=== PATIENT | female | born 1990 | race Native Hawaiian/Other Pacific Islander ===

== ENCOUNTER 2018-12-28 11:57 | Inpatient (IN) | payer OTHER ==
[~2018-12-28] VITALS: Ht 170.2 cm; Wt 125.1 kg
[2018-12-28] VITALS (19 sets, daily range): BP systolic 123–163; BP diastolic 67–91
[2018-12-28] MEDS ORDERED: PRENTAB9 PO (12:38)
[2018-12-28 14:26] LABS: ALT/SGPT 21 U/L (12-78); BILIRUBIN,TOTAL 0.2 MG/DL (0.2-1.0); CREATININE FOR GFR 0.69 MG/DL (0.55-1.30); GLOMERULAR FILTRATION RATE > 60.0 (>60); LDH LACTATE DEHYDROGENASE 198 U/L (84-246); URIC ACID 4.7 MG/DL (2.6-6.0)
[2018-12-28 14:57] LABS: HEMATOCRIT 35.2 % (36.0-47.0); HEMOGLOBIN 11.6 g/dl (12.0-15.5); MEAN CORPUSCULAR HEMOGLOBIN 27.8 pg (27.0-33.0); MEAN CORPUSCULAR VOLUME 84.4 fl (80.0-96.0); PLATELET COUNT, AUTOMATED 243 10^3/uL (150-450); RED BLOOD COUNT 4.17 10^6/uL (4.00-5.40); WHITE BLOOD COUNT 10.6 10^3/uL (4.0-10.0)
[2018-12-28] MEDS ORDERED: LACTATED RINGER'S 1000 ML IV STA (15:16)
[2018-12-28] MEDS ORDERED: BICITRA 30ML SOLN UDC PO ONE (15:30)
[2018-12-28] MEDS ORDERED: ceFAZolin SOD 1 GM in D5W MINI-BAG PLUS 50 ML IV ONE (15:30)
--- NOTE | 2018-12-28 15:33 | HPEPDOC ---
Obstetrical History & Physical General Date of Admission Dec 28, 2018 at 15:07 History of Present Illness 28 yo at 37+6 weeks gestation by 13+0 week US on 07Jul2018 presented to L&D as a workup for pre eclampsia. She was noted to have elevated blood pressure last week and also today that was persistent. She feels well though and is asymptomatic of headaches, RUQ pain, visual changes, or SOB. She also denies any pelvic pain, contractions, leakage of fluid, or bleeding. Chief Complaint: Pre-eclamsia Information Provided By: Patient Age: 28 : 3 Term: 0 Pre-term: 2 Abortions: 0 Livin Care Care: Good Care Dating Final EDC: Jan 12, 2019 Final EDC for Daily Update: Jan 12, 2019 Final EDC by: 1st trimester (US) (13+0 week US on 07Jul2018 set ENRIQUE of [id number]) Antepartum Course Diagnos(e)s Obesity ---> BMI 43, normal glucose screening History of 24 week C/S for labor and breech presentation. Also 36 week . Was on 17-OHP throughout Past Medical History Past Obstetrical History : Past Obstetrical History: Multigravida (C/S at 24 weeks in 2013 for labor and breech presentation. 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 Past Medical History Medical History Obesity Surgical History: section Family History Significant Family History: No pertinent family hx Family History Non contributory Social History Marital Status: Single Psychosocial History: No pertinent psych hx * Smoker: non-smoker Alcohol: Denies Drugs: denies Imunizations Tdap status: current Influenza Status: current Allergies Coded Allergies: No Known Allergies (Unverified , 12/28/18) Medications Scheduled No.137/Iron/Folic Acd ( Vitamin Tablet) 1 Each Tablet, 1 TAB PO DAILY Physical Examination Physical Examination GENERAL: Alert and oriented times three. ABDOMEN: Gravid uterus, no fundal tenderness FETUS: Is vertex (VTX) by sterile vaginal examination (SVE) EXTREMITIES: +1 pitting edema in lower extremities Vital Signs/I&O Vital Signs Date Time Temp Pulse Resp B/P (MAP) Pulse Ox O2 Delivery O2 Flow Rate FiO2 12/28/18 13:19 73 129/67 (87) 12/28/18 12:22 98.3 18 Laboratory Data 24H LABS Laboratory Tests 2 12/28/18 13:48: Nucleated Red Blood Cells % (auto) 0.0, Urine Random Creatinine 48.0, Urine Random Total Protein 23.0H, Glomerular Filtration Rate > 60.0, Creatinine 0.69, Aspartate Amino Transf (AST/SGOT) 20, Alanine Aminotransferase (ALT/SGPT) 21, Lactate Dehydrogenase 198, Total Bilirubin 0.2, Uric Acid 4.7 12/28/18 15:13: Serology Scanned Report Hepatitis B Testing CBC/BMP Laboratory Tests 12/28/18 13:48 Red Blood Count 4.17, Mean Corpuscular Volume 84.4, Mean Corpuscular Hemoglobin 27.8, Mean Corpuscular Hemoglobin Concent 33.0, Red Cell Distribution Width 13.3, Aspartate Amino Transf (AST/SGOT) 20, Alanine Aminotransferase (ALT/SGPT) 21, Lactate Dehydrogenase 198, Total Bilirubin 0.2, Uric Acid 4.7 Urine Culture: No Growth Pertinent Laboratoy Data Blood Type: A+ RBC Antibody Screen: Negative HIV: Negative Hepatitis B: Negative Hepatitis C: Unknown Rapid Plasma Reagin: Nonreactive Rubella: Immune Varicella: Nonreactive Chlamydia/Gonorrhea: Negative Group B Streptococcus: Negative Quad Screen Test: Unknown Cystic Fibrosis: Unknown Glucose Tolerance Test: 96 Anatomy Ultrasound Placenta Location: Anterior Normal Anatomy: Yes Placenta Previa: No Vaginal Examination Dilation: None Effacement: 50% Station: -3 Cervical Consistency: Firm Cervical Position: Posterior Presentation: Cephalic presentation Position: Vertex (occiput) (cervical exam by Dr. Corrales) Assessment Heart Rate (FHR): 140 Variability: Moderate Accelerations: Positive Decelerations: None Tocometer Contractions: No Assessment/Plan Assessment 28 yo at 37+6 weeks presented with elevated blood pressures have has ruled in for pre eclampsia. Plan Admit. Apply IV fluids. Patient meets criteria for Pre E with elevated BPs and pr:cr of 0.47. Delivery is indicated. She has had one prior c section, with a single layer closure of her lower uterine segment based on her op report. In addition, her cervix is closed/thick/high. I discussed RLTCS vs IOL and TOLAC. TOLAC would likely be a long process and I wouldn't be able to give her anything for cervical ripening. Ms. Bowden understands this and desires to proceed with RLTCS, which is what I recommended. She has been NPO since 0800 this AM. Ancef and azithromycin for infection prophylaxis. OR and anesthesia notified. All patient questions answered. DO GAVIN Mabry CHRISTOPHER J. DO Dec 28, 2018 15:33
[2018-12-28] MEDS ORDERED: AZITHROMYCIN INJ 500 MG, VIAL MATE ADAPTER 1 EACH in D5W 250 ML IV ONE (16:00)
[2018-12-28] MEDS ORDERED: MORPHINE PRES-FREE INJ 10 MG/10 ML VIAL (J2274) As Ordered ONE (19:05)
[2018-12-28 19:52] LABS: APPEARANCE, URINE HAZY (CLEAR); BACTERIA, URINE AUTO NEGATIVE (NEGATIVE); BILIRUBIN, URINE AUTO NEGATIVE (NEGATIVE); BLOOD, URINE BLOOD NEGATIVE (NEGATIVE); COLOR, URINE YELLOW (YELLOW); GLUCOSE, URINE (UA) AUTO NEGATIVE (NEGATIVE); KETONE, URINE AUTO NEGATIVE (NEGATIVE); LEUKOCYTE ESTERASE, URINE AUTO NEGATIVE (NEGATIVE); NITRITE, URINE AUTO NEGATIVE (NEGATIVE); PROTEIN, URINE AUTO NEGATIVE (NEGATIVE); RBC, URINE AUTO 0 /HPF (0-3); SPECIFIC GRAVITY URINE AUTO 1.008 (1.002-1.035); SQUAMOUS EPITHELIAL CELL UR AU 9 /HPF (0-6); UROBILINOGEN, URINE AUTO 0.2 mg/dL (0.0-2.0); WBC, URINE AUTO 1 /HPF (0-3)
[2018-12-28] MEDS ORDERED: dexameTHASONE 4 MG/ML 1ML VIAL (J1100) As Ordered ONE (19:57)
[2018-12-28] MEDS ORDERED: ONDANSETRON 4MG/2ML VIAL (J2405) As Ordered ONE ×2 (19:58→21:49)
[2018-12-28] MEDS ORDERED: OXYTOCIN INJ 10 UNITS/ML VIAL (J2590) As Ordered ONE (19:58)
[2018-12-28] MEDS ORDERED: KETOROLAC 60 MG/2 ML VIAL (J1885) As Ordered ONE (20:11)
[2018-12-28] MEDS ORDERED: fentaNYL 100 MCG/2 ML INJECTION (J3010) As Ordered ONE (20:18)
[2018-12-28] MEDS: LR 1,000 ML IV SCH (20:50)
[2018-12-28] MEDS ORDERED: PERCOCET 5MG/325MG TAB PO PRN ×3 (21:00→21:30)
[2018-12-28] MEDS ORDERED: RHOGAM 300 MCG (1500 IU) INJ (J2790) IM SCH (21:00)
[2018-12-28] MEDS ORDERED: DOCUSATE SODIUM 100 MG CAP PO PRN (21:00)
[2018-12-28] MEDS ORDERED: PROMETHAZINE 25 MG TAB PO PRN (21:00)
[2018-12-28] MEDS ORDERED: MEASLES,MUMPS,RUBELLA VACCINE INJ (MMR-II) (90707) SC SCH (21:00)
[2018-12-28] MEDS ORDERED: LR 1,000 ML IV SCH (21:30)
[2018-12-28] MEDS ORDERED: METOCLOPRAMIDE INJ 10MG/2ML VIAL (J2765) IV PRN (21:30)
[2018-12-28] MEDS ORDERED: ONDANSETRON 4MG/2ML VIAL (J2405) IV PRN (21:30)
[2018-12-28] MEDS ORDERED: MEPERIDINE INJ 25 MG/ML VIAL (J2175) IV PRN (21:30)
[2018-12-28] MEDS ORDERED: fentaNYL 100 MCG/2 ML INJECTION (J3010) IV PRN (21:30)
[2018-12-29] VITALS (7 sets, daily range): BP systolic 130–136; BP diastolic 59–80
[2018-12-29] MEDS: KETOROLAC 30 MG/ML VIAL (J1885) IV SCH ×3 (02:38→15:28)
[2018-12-29] MEDS: LR 1,000 ML IV SCH (04:50)
[2018-12-29 06:49] LABS: HEMOGLOBIN 10.6 g/dl (12.0-15.5); MEAN CORPUSCULAR HEMOGLOBIN 27.5 pg (27.0-33.0); MEAN CORPUSCULAR HGB CONC 33.1 g/dl (32.0-36.5); MEAN CORPUSCULAR VOLUME 82.9 fl (80.0-96.0); PLATELET COUNT, AUTOMATED 247 10^3/uL (150-450); RED BLOOD COUNT 3.86 10^6/uL (4.00-5.40); WHITE BLOOD COUNT 17.5 10^3/uL (4.0-10.0)
--- NOTE | 2018-12-29 07:18 | IPNPDOC ---
Progress Note Date of Service: Dec 29, 2018 Progress Note Ms. Bowden is a 28 yo G3 now P3 who is POD#1 s/p an uncomplicated RLTCS last night for pre eclampsia in the setting of a history of a prior c section and no desire for TOLAC. She is recovering on the grijalva. Ms. Bowden reports feeling well this morning. She had vomiting last night after delivery after eating a very large meal immediately post op. THis has since resolved after receiving nausea medication. She has not yet been ambulatory as her legs are still numb. Salazar catheter is still in place. She denies any pain this AM, fevers/chills, SOB, chest pain. Vitals - VSS, afebrile, normotensive, non tachycardic General - AAOX3, sitting up in bed , NAD Abdomen - Fundus firm at U-2. No fundal tenderness. Bandage in place over incision and c/d/i. Extremities - No edema UO - adequate, but borderline low Labs: Post op CBC stable this AM Ms. Bowden is doing well and is making an appropriate post op / rec overy. Will need to encourage ambulation when able. Continue IV fluids until fully PO tolerant. Continue IS use. SCDs to remain in place until patient fully ambulatory. Monitor BPs closely today. Continue routine post op care. All patient questions answered. Ac Alonso, DO VS, I&O, 24H, Willy Vital Signs/I&O Vital Signs Date Time Temp Pulse Resp B/P (MAP) Pulse Ox O2 Delivery O2 Flow Rate FiO2 12/29/18 05:45 98.3 69 17 133/71 (91) 12/29/18 00:10 96 I&O- Last 24 Hours up to 6 AM 12/29/18 06:00 Intake Total 2030 ml Output Total 1075 ml Balance 955 ml Laboratory Data 24H LABS Laboratory Tests 2 12/28/18 13:45: Urine Appearance HAZY, Urine Color YELLOW, Urine pH 8.0, Urine Specific Bicknell 1.008, Urine Protein NEGATIVE, Urine Glucose (UA) NEGATIVE, Urine Ketones NEGATIVE, Urine Urobilinogen 0.2, Urine Bilirubin NEGATIVE, Urine Leukocyte Esterase NEGATIVE, Urine Blood NEGATIVE, Urine Nitrite NEGATIVE, Urine WBC (Auto) 1, Urine RBC (Auto) 0, Urine Hyaline Casts (Auto) 0, Urine Bacteria (Auto) NEGATIVE, Urine Squamous Epithelial Cells 9, Urine Sperm (Auto) 12/28/18 13:48: Nucleated Red Blood Cells % (auto) 0.0, Urine Random Creatinine 48.0, Urine Random Total Protein 23.0H, Glomerular Filtration Rate > 60.0, Creatinine 0.69, Aspartate Amino Transf (AST/SGOT) 20, Alanine Aminotransferase (ALT/SGPT) 21, Lactate Dehydrogenase 198, Total Bilirubin 0.2, Uric Acid 4.7 12/28/18 15:13: Serology Scanned Report Hepatitis B Testing 12/29/18 06:37: Nucleated Red Blood Cells % (auto) 0.0 CBC/BMP Laboratory Tests 12/28/18 13:48 Red Blood Count 4.17, Mean Corpuscular Volume 84.4, Mean Corpuscular Hemoglobin 27.8, Mean Corpuscular Hemoglobin Concent 33.0, Red Cell Distribution Width 13.3, Aspartate Amino Transf (AST/SGOT) 20, Alanine Aminotransferase (ALT/SGPT) 21, Lactate Dehydrogenase 198, Total Bilirubin 0.2, Uric Acid 4.7 12/29/18 06:37 Red Blood Count 3.86 L, Mean Corpuscular Volume 82.9, Mean Corpuscular Hemoglobin 27.5, Mean Corpuscular Hemoglobin Concent 33.1, Red Cell Distribution Width 13.4 AC ALONOS DO Dec 29, 2018 07:18
--- NOTE | 2018-12-29 07:47 | RO ---
DATE OF PROCEDURE: 12/28/2018 PREOPERATIVE DIAGNOSIS: Preeclampsia with history of section and no desire for trial of labor after (TOLAC). POSTOPERATIVE DIAGNOSIS: Preeclampsia with history of section and no desire for trial of labor after (TOLAC). PROCEDURE: Repeat low transverse section. SURGEON: Alberto Gutierrez DO QUARTZ ORIENTATOR: Sparkle Corrales MD ANESTHESIA: Spinal. FLUIDS: 1200 mL of Lactated Ringer's, 500 mL of pit mixed in Lactated Ringer's. URINE OUTPUT: 100 mL. ESTIMATED BLOOD LOSS: 500 mL. COMPLICATIONS: None. ANTIBIOTICS: 3 grams of Ancef and 500 mg of azithromycin OPERATIVE FINDINGS: Viable male infant found and delivered in cephalic presentation, triple nuchal cord noted with delivery and reduced manually on the field. scores 7 and 8 and weight was 3170 grams or 7 pounds. DETAILED PROCEDURE DESCRIPTION: The risks, benefits, indications and alternatives of the procedure were reviewed with the patient and informed consent was obtained. The patient was taken to the operating room where spinal anesthesia was obtained without difficulty. She was then prepped and draped in the usual sterile fashion in dorsal supine position with a leftward tilt. A surgical time out was then performed and the patient's identity and planned procedure were verified with the operative team. A Pfannenstiel skin incision was then made with a scalpel and carried through to the underlying layer of fascia using the Bovie electrocautery. The fascia was incised in the midline and the incision was extended laterally with Huggins scissors. The superior aspect of the fascial incision was then grasped with Juli clamps, elevated and the underlying rectus muscles were dissected off with Huggins scissors. Attention was then turned to the inferior aspect of this incision, which in a similar fashion was grasped, tented up with Juli clamps and the rectus muscles were dissected off with Huggins scissors. The rectus muscles were then at the midline. The peritoneum was identified and entered digitally. The peritoneal incision was then extended horizontally and superiorly with good visualization of the bladder. A Mobius self containing retractor was then inserted into the abdomen. The vesicouterine peritoneum was then identified and entered sharply with a scalpel. This incision was then extended laterally and the bladder flap was created digitally. Next, the lower uterine segment was incised in a transverse fashion with a scalpel. The uterine incision was then extended manually. The amniotic sac was artificially ruptured, productive of clear fluid. The was found to be in cephalic presentation. The infant's head was then delivered atraumatically through the hysterotomy followed easily by the remainder of the body. There was a triple nuchal cord noted with delivery that was delivered through and then reduced manually. The infant's nose and mouth were then suctioned with a bulb syringe and the cord was doubly clamped and cut. The infant was then handed off to the awaiting pediatricians. The placenta was then removed manually. The uterus was then exteriorized and cleared of all clots and debris. The uterine incision was then repaired with #0 Monocryl suture in a running locked fashion. A second layer of #0 Monocryl was then used to imbricate the hysterotomy in a vertical fashion. The posterior cul-de-sac was then irrigated. Inspection of the hysterotomy revealed excellent hemostasis. The uterus was then returned to the abdomen and the hysterotomy was again inspected and found to be hemostatic along the entire length. The pericolic gutters were then irrigated and cleared of all clots and debris. The Mobius self containing retractor was then removed from the abdomen. The peritoneum was then reapproximated using #3-0 Vicryl suture in a running fashion. There was oozing, bleeding along the rectus muscle surface, which was controlled with Bovie electrocautery. Jamia was then applied to the rectus muscle surface. The fascia was then closed with #0 Vicryl suture in a running fashion. The subcutaneous fat was close with #3-0 Vicryl suture in a running fashion. The skin was closed with #4-0 Monocryl suture in a subcuticular fashion. The incision was then dressed with Steri-Strips and a pressure dressing was applied. At the completion of the case a bimanual exam was performed which revealed good uterine tone and minimal vaginal bleeding. The patient tolerated the procedure well. Sponge, lap, instrument and needle counts were correct times three. The patient was taken to the recovery room in stable condition. NATANAEL
[2018-12-29] MEDS: PRENATAL VITAMINS CHEWABLE TABLET PO SCH (08:25)
[2018-12-29] MEDS: IBUPROFEN 800 MG TAB PO SCH (21:45)
[2018-12-30 02:00] VITALS: BP 133/76
[2018-12-30 06:00] VITALS: BP 139/74
[2018-12-30] MEDS: IBUPROFEN 800 MG TAB PO SCH ×3 (06:02→22:24)
[2018-12-30] MEDS: PRENATAL VITAMINS CHEWABLE TABLET PO SCH (08:39)
--- NOTE | 2018-12-30 09:20 | IPNPDOC ---
Text Note Date of Service The patient was seen on 12/30/18. NOTE POD 2 Jewell is a 28yo G3 now P3 who is POD#2 doing well s/p an uncomplicated RLTCS on 12/[address] Gutierrez for pre-eclampsia in the setting of a history of a prior c- section and no desire for TOLAC. She has been ambulating without lightheadedness/dizziness. Voiding spotaneously without problem. Tolerating regular diet. Lochia is minimal. Pain well controlled with medications. Formula feeding. Has not yet showered. Bandage still on. She denies any pain this AM, fevers/chills, SOB, chest pain. Vitals - VSS, afebrile, normotensive, non tachycardic General - AAOX3, sitting up in comfortably, NAD Abdomen - Fundus firm at U-2. Appropriately tender to palpation without rebound/guarding. Bandage removed, pfannensteil incision is clean/dry/intact with steri strips overlying and no erythema/drainage/induration Extremities - 1+ pedal edema bilaterally Labs: pre-op H/H: 11.6/35.2 post-op H/H: 10.6/32 Assessment: Jewell is a 28yo G3 now P3 who is POD#2 doing well s/p an uncomplicated RLTCS on 12/[address] Gutierrez for pre-eclampsia in the setting of a history of a prior and no desire for TOLAC. Vitals wnl, exam benign. Hemodynamically stable, no e/o infection. Plan: -Routine post-/post-op pain -Likely discharge home tomorrow -Regular diet -Encourage ambulation and use of IS -Ok to shower today, pat incision dry after -Percocet and motrin prn pain Dr. Sparkle Corrales MD VS,Willy, I+O VSWilly, I+O Vital Signs Date Time Temp Pulse Resp B/P (MAP) Pulse Ox O2 Delivery O2 Flow Rate FiO2 12/30/18 06:00 98.6 72 17 139/74 (95) 12/29/18 17:42 98 I&O- Last 24 Hours up to 6 AM 12/30/18 06:00 Intake Total 1140 ml Output Total 1500 ml Balance -360 ml Sparkle Corrales MD Dec 30, 2018 09:20
[2018-12-30 09:58] VITALS: BP 132/73
[2018-12-30 14:00] VITALS: BP 128/58
[2018-12-30 17:51] VITALS: BP 145/73
[2018-12-31 06:00] VITALS: BP 141/75
[2018-12-31] MEDS ORDERED: IBUP80TA PO (06:59)
[2018-12-31] MEDS ORDERED: OXYC1TAB23 PO ×2 (07:22→19:45)
[2018-12-31] MEDS: IBUPROFEN 800 MG TAB PO SCH (07:28)
[2018-12-31] MEDS: PRENATAL VITAMINS CHEWABLE TABLET PO SCH (10:46)
--- NOTE | 2018-12-31 11:56 | DSES ---
DATE OF ADMISSION: 12/28/2018 DATE OF DISCHARGE: 12/31/2018 28-year-old, (G) 3, para (P) 2 female at 37-6/7 weeks gestation presented with persistently elevated blood pressures on repeat readings. She had a workup which was consistent with preeclampsia. Patient has history of one prior section. Due to the fact that her cervix was unfavorable, and in light of diagnosis of preeclampsia, the decision was made to proceed with repeat section. HOSPITAL COURSE: 12/28/2018, patient underwent repeat low transverse section for a 7 pound 0 ounce male . The procedure was without complication. There was noted to be nuchal cord times three at the time of surgery. Patient's postoperative course was unremarkable. She had adequate return of bladder and bowel function. She did not require further blood pressure medications in the postoperative period. Her postoperative hemoglobin was 10.6 g/dL. She was deemed stable for discharge on postoperative date #3. ADMISSION DIAGNOSES: 37-6/7 weeks gestation. Prior section. Preeclampsia. DISCHARGE DIAGNOSIS: Delivered. PROCEDURE: Repeat low transverse section. DISPOSITION: Patient will followup with Peggy Armstrong ORNAMENTAL METALWORK DESIGNER in 2 weeks. Instructions reviewed. edited: 01/01/2019 0712 tkf MTDD
== END 2018-12-31 14:05 | disposition home or self-care (01) | DRG 773 ==
LOC: M LDO 11:57 → M LDI 15:07 → M LDPACU 19:31 → M OBS 22:32
PROVIDERS: ADMIT Obstetrics & Gynecology; ATTEND Obstetrics & Gynecology
PROC: 10D00Z1 Extraction of Products of Conception, Low, Open Approach (ICD-10-PCS; principal; 2018-12-28 16:47)
DX: O14.94 Unspecified pre-eclampsia, complicating childbirth (principal); Z3A.37 37 weeks gestation of pregnancy; O34.211 Maternal care for low transverse scar from previous cesarean delivery; O99.214 Obesity complicating childbirth; E66.9 Obesity, unspecified; O69.81X0 Labor and delivery complicated by cord around neck, without compression, not applicable or unspecified; Z37.0 Single live birth

== ENCOUNTER 2019-05-11 19:43 | Emergency (ER) | payer OTHER ==
[~2019-05-11 19:43] MED LIST: IBUP80TA PO; OXYC1TAB23 PO; PRENTAB9 PO
[2019-05-11] MEDS ORDERED: FLEET ENEMA PR STA (21:38)
[2019-05-11] MEDS ORDERED: MAGNESIUM CITRATE 300 ML BTL PO ONE (21:45)
[2019-05-11] MEDS ORDERED: DOCUSATE SODIUM 100 MG CAP PO ONE (21:45)
[2019-05-11] MEDS ORDERED: COLA100C5 PO (22:54)
[2019-05-11] MEDS ORDERED: MACR100C43 PO (22:54)
[2019-05-11] MEDS ORDERED: NITROFURANTOIN (MACROBID) 100 MG CAP PO ONE (23:00)
[2019-05-11 23:03] VITALS: BP 131/75
--- NOTE | 2019-05-12 08:38 | REP ---
Abdominal series: Three views. Tree: No bowel movement times 2 days. Abdomen pain. Findings: Upright chest radiograph is normal. There is no evidence of infiltrate or free subdiaphragmatic air. Heart is not enlarged. Supine and erect views of the abdomen demonstrate a normal bowel gas pattern. There are a few small air fluid levels in the ascending and transverse segments of the colon. Mild formed stool is seen in the rectum. No colonic distension. Lank stripes are intact. Psoas margins are symmetric. No mass organomegaly. Impression: Unremarkable abdominal series. Electronically Signed by Hesham Coyne MD 05/12/2019 08:30 A
== END 2019-05-11 23:04 | disposition home or self-care (01) ==
LOC: M ED 19:43
DX: N30.00 Acute cystitis without hematuria (principal); R19.4 Change in bowel habit

== ENCOUNTER 2019-06-28 11:36 | Day surgery (SDC) | payer OTHER ==
[~2019-06-28] VITALS: Ht 170.2 cm; Wt 102.9 kg
[~2019-06-28 11:36] MED LIST changes: +COLA100C5 PO; +LR 1,000 ML IV ONE; +MACR100C43 PO
[2019-06-28 11:59] LABS: HEMOGLOBIN 14.1 g/dl (12.0-15.5); MEAN CORPUSCULAR HEMOGLOBIN 26.6 pg (27.0-33.0); PLATELET COUNT, AUTOMATED 298 10^3/uL (150-450); WHITE BLOOD COUNT 5.4 10^3/uL (4.0-10.0)
[2019-06-28] MEDS ORDERED: ROCURONIUM BROMIDE 50 MG/5 ML VIAL As Ordered ONE ×2 (12:23→13:51)
[2019-06-28] MEDS ORDERED: propofoL 200 MG/20 ML VIAL As Ordered ONE (12:23)
[2019-06-28] MEDS ORDERED: dexameTHASONE 4 MG/ML 1ML VIAL (J1100) As Ordered ONE (12:23)
[2019-06-28] MEDS ORDERED: ONDANSETRON 4MG/2ML VIAL (J2405) As Ordered ONE ×2 (12:23→15:01)
[2019-06-28] MEDS ORDERED: LIDOCAINE 2% INJ 100 MG/5 ML SDV (FOR ANES.) As Ordered ONE (12:23)
[2019-06-28] MEDS ORDERED: fentaNYL 100 MCG/2 ML INJECTION (J3010) As Ordered ONE ×2 (12:24→13:52)
[2019-06-28] MEDS ORDERED: MIDAZOLAM INJ 2 MG/2 ML VIAL (J2250) As Ordered ONE (12:24)
[2019-06-28 12:33] LABS: HCG, SERUM QUALITATIVE NEGATIVE (NEGATIVE)
[2019-06-28] MEDS ORDERED: KETOROLAC 60 MG/2 ML VIAL (J1885) As Ordered ONE (13:52)
[2019-06-28] MEDS ORDERED: ACETAMINOPHEN 1000MG 100ML IV BTL (OFIRMEV) (J0131 PER 10MG) As Ordered ONE (13:52)
[2019-06-28] MEDS ORDERED: SUGAMMADEX SODIUM 500 MG/5 ML VIAL (BRIDION) As Ordered ONE (13:52)
[2019-06-28] MEDS ORDERED: BUPIVACAINE/EPIN 0.25% 30 ML VIAL As Ordered ONE (14:05)
[2019-06-28] MEDS ORDERED: METOCLOPRAMIDE INJ 10MG/2ML VIAL (J2765) As Ordered ONE (15:01)
[2019-06-28] MEDS ORDERED: LR 1,000 ML IV SCH ×2 (15:15)
[2019-06-28] MEDS ORDERED: ONDANSETRON 4MG/2ML VIAL (J2405) IV PRN (15:15)
[2019-06-28] MEDS ORDERED: PERCOCET 5MG/325MG TAB PO PRN (15:15)
[2019-06-28] MEDS ORDERED: fentaNYL 100 MCG/2 ML INJECTION (J3010) IV PRN (15:15)
[2019-06-28] MEDS ORDERED: METOCLOPRAMIDE INJ 10MG/2ML VIAL (J2765) IV PRN (15:15)
[2019-06-28] MEDS: HYDROMORPHONE HCL 0.5 MG/ 0.5 ML SYRINGE (J1170 PER 1) IV PRN ×2 (15:37→15:45)
--- NOTE | 2019-06-28 15:40 | POST-OPPD ---
Postoperative Procedure Note PREOPERATIVE DIAGNOSIS: Right adnexal cyst POSTOPERATIVE DIAGNOSIS: Right paratubal cyst FINDINGS: Right paratubal cyst. uterus with anterior adhesions to bladder. PROCEDURE: Right paratubal cystectomy SURGEON: Karol Nickerson DO STEEL ANALYST: Deepak Danielle DO ANESTHESIA: General SPECIMENS: Right para tubal cyst ESTIMATED BLOOD LOSS: < 5cc REPLACED: 1700cc LR DRAINS: 400cc urine COMPLICATIONS: none POSTOPERATIVE CONDITION: stable Detail Procedure note: Indication: Patient is a 29 yo with right adnexal cyst causing discomfort desiring surgical intervention. Patient history significant for delivery x 2 and obesity. Findings: Anterior uterus with adhesions to bladder. Normal appearing bilateral ovaries and left fallopian tubes. Right fallopian tube with large (~5-6cm) para tubal cyst under the mesosalpingx starting from mid ithmus portion of tube extending to the fimbriea. Normal appearing bowel and liver edge. Description of procedure: The risks, benefits, indications and alternatives of the procedure were reviewed with the patient and informed writen consent was obtained. The patient was taken to the operating room with IV running. She was placed under general anesthesia with endotracheal tube. Arms tucked. Patient placed in lithotomy. The abdomen, vagina and perineum were prepped and draped in the usual sterile fashion. Salazar inserted. Sponge stick placed vaginally for uterine manipulation. Small incision made in umbilicus. Veres needle introduced. Saline drop test confirmed intraabdominal placement. Abdomen insufflated with CO2. Five mm trocar introduced under direct visualization. Surveys reviews no bowel injury or bleeding. Two 5mm ports placed left lower abdomen with direct visualization. Findings as above. Harmonic scalpel used to dissect cyst off the right mesosalpingx. Laparoscopic needle used to drain cyst of clear fluid. Cyst removed through trocar port. Surgical area inspected for hemostasis. Right fallopian tube and ovary were not disrupted with surgery. Abdomen desuflated. Camera and instruments removed from abdomen. Incision sites closed with 4-O monocryl and dermabond. Salazar and sponge stick removed from the vagina. Count correct x 2. Patient was taken out of OR in stable condition KAROL NICKERSON DO Jun 28, 2019 15:40
[2019-06-28] MEDS ORDERED: PERCOCET 5MG/325MG TAB As Ordered ONE (16:37)
[2019-06-28 19:10] VITALS: BP 132/83
== END 2019-06-28 19:45 | disposition home or self-care (01) ==
LOC: M SDC 11:36
PROVIDERS: ATTEND Obstetrics & Gynecology
DX: N83.291 Other ovarian cyst, right side (principal); K59.00 Constipation, unspecified; E66.9 Obesity, unspecified
CPT/HCPCS: 36415; 58662; 84703; 85027; 86850; 86900; 86901; 88305; J0131; J1100; J1170; J1885; J2250; J2405; J2765; J3010

== ENCOUNTER → 2020-08-11 | Outpatient (CLI) | payer SELFPAY ==
[~2020-08-11] MED LIST changes: -LR 1,000 ML IV ONE
== END ==
LOC: M LABSMTC 08:12
PROVIDERS: ATTEND Pediatrics
DX: Z20.822 Contact with and (suspected) exposure to COVID-19 (principal)